=== PATIENT | male | born 2000 | race Hispanic/Latino ===

== ENCOUNTER 2025-02-11 00:21 | Emergency (ER) | payer SELFPAY ==
[2025-02-11] MEDS ORDERED: Acetaminophen 500 MG TAB ONE (01:06)
[2025-02-11 01:08] LABS: Hematocrit 48.0 % (42.0-52.0); Hemoglobin 17.6 g/dL (14.0-18.0); MDiff Complete? YES; Mean Corpuscular Hemoglobin 28.8 pg (27.0-31.0); Mean Corpuscular Volume 78.8 fl (78.0-98.0); Platelet Adequacy Comment Appears Adequate; Platelet Count 267 10x3/uL (130-400); Red Blood Cell (RBC) Count 6.10 mill/uL (4.70-6.10); White Blood Cell (WBC) Count 10.1 10x3/uL (4.8-10.8)
[2025-02-11 01:18] LABS: ALT (SGPT) 19 U/L (Less than 45); AST (SGOT) 32 U/L (11-34); Albumin 5.2 g/dL (3.1-4.5); Alkaline Phosphatase 78 U/L (40-110); Anion Gap 17 mmol/L (10-20); BUN (Urea Nitrogen) 16 mg/dL (8.9-20.6); Bilirubin, Total 0.5 mg/dL (0.3-1.2); Calc. Creatinine Clearance 0 mL/min (70-130); Calcium 9.4 mg/dL (7.8-10.44); Carbon Dioxide 24 mmol/L (22-29); Chloride 102 mmol/L (98-107); Globulin 3.0 g/dL (2.4-3.5); Glucose 115 mg/dL (70-105); Potassium 4.0 mmol/L (3.5-5.1); Sodium 139 mmol/L (136-145)
== END 2025-02-11 01:37 | disposition home or self-care (01) ==
LOC: BURERS 00:21
DX: S16.1XXA Strain of muscle, fascia and tendon at neck level, initial encounter (principal); T23.202A Burn of second degree of left hand, unspecified site, initial encounter; T22.112A Burn of first degree of left forearm, initial encounter; F17.290 Nicotine dependence, other tobacco product, uncomplicated; V89.2XXA Person injured in unspecified motor-vehicle accident, traffic, initial encounter
CPT/HCPCS: 36415; 70450; 72125; 80053; 85025; 96372; G0390; J1885